=== PATIENT | male | born 1965 | race Caucasian/White ===

== ENCOUNTER → 2019-06-12 12:29 | Outpatient (CLI) | payer OTHER, SELFPAY ==
[2013-01-04 04:27] VITALS: BMI 39.6
--- NOTE | 2019-06-12 12:41 | RAD_ITS ---
STUDY: X-RAY CHEST REASON FOR EXAM: Male, 53 years old. ABNORMAL LUNG FUNCTION TEST TECHNIQUE: Frontal and lateral views of the chest. COMPARISON: None. FINDINGS: The lungs are clear and expanded. There is no demonstrated pleural abnormality. Normal size heart. Normal mediastinum and mathew. Normal visualized pulmonary arteries. Normal visualized aortic arch and descending thoracic aorta. There are diffuse degenerative changes of the visualized thoracic spine. Normal visualized ribs, clavicles, and shoulders. There is no demonstrated abnormality of the visualized soft tissue structures of the upper abdomen. RAD/Chest PA and Lateral IMPRESSION: No acute cardiopulmonary process. Electronically Signed: Aniya Kennedy MD at 21:52 EDT Tel , Service support ,
== END ==
PROVIDERS: PCP Internal Medicine; Referring Provider Internal Medicine; Visit Provider Internal Medicine
DX: R94.2 Abnormal results of pulmonary function studies (principal)
CPT/HCPCS: 71046

== ENCOUNTER 2020-06-13 15:52 | Outpatient (RCR) | payer OTHER, SELFPAY ==
--- NOTE | 2020-06-13 16:42 | HP.PTEVAL ---
Patient's Visit Information WHIT BRADFORD is a 54 year old M referred to Physical Therapy by Dr. Joyce Hennessy MD with a diagnosis of BPV. Date of Evaluation: 06/13/20 Physical Therapist: Brando An DPT, OCS, CSCS - Visit Plan Frequency: 1-2x /Week Duration: 2-4 Weeks Plan: 1-2x/week as needed for 2-4 weeks for positional treatments as needed and return to activity if needed. - Subjective Saturday early am got up to go to bathroom Satup and felt dizzy and stood up and worse, sitting on toilet started spinning. Spun when lying and it quit. Rolled over Saturday morning and spun less than a minute. Sat in bed for a while and wasn't self. Getting dizzy with sitting yesterday or standing. [place] sitting still. Laid down in bed and got got dizzy quickly . Some dizzyness at times with rolling. Today is mostly the same with movement and called off work. Went to doctor and spun when laid down. Employed as haul truck driver. Off today. Not very active last two days but normal prior to that. - Objective Walks into PT I, avoids moving head. Cervical aROM WFL and without pain. Balance is good. - L hallpike artie. + R hallpike artie for up torsional nystagmus of 13 second duration. Treated with R Nila and then - HD test. - Balance Scores Functional Gait Assessment Score: 30 % Disability: 0 - Goals Goal 1:: Patient feel 100% back to normal with activity including bed transfers Goal Time Frame: 2-4 Weeks Goal 2:: Pt return to work without issues. Goal Time Frame: 2-4 Weeks Goal 3:: DHI score less than 10 Goal Time Frame: 2-4 Weeks - Rehabilitation Potential Physical Therapy Diagnosis: R PC BPPV Rehabilitation Potential: Good - Anticipated Interventions Patient/Client Instruction: Educate patient on: Condition, Plan of Care For the Purpose of:: To increase tolerance to activity/condition/position Comment: positional treatments and return to activity as needed. For the Purpose of:: To increase tolerance to activity/condition/position Thank you for the opportunity to evaluate your patient. For Medicare and Medicare HMO plans, please review the plan of care and approve it. It will need to be FAXED BACK to us at [phone] for Medicare purposes. For Medicare only, by signing this I certify the plan of care. Please let me know if there are questions or concerns regarding this plan of care. Physician Signature: Date:
--- NOTE | 2020-06-17 07:01 | HP.PTDCSUM ---
It has been my pleasure to treat WHIT BRADFORD referred by Dr. Joyce Hennessy MD, with the diagnosis of BPV for a total of 1 visit(s). Discharge Date: 06/17/20 Please see the following information for a summary of their discharge status. % Improvement: 100 Goal 1:: Patient feel 100% back to normal with activity including bed transfers Goal Progress: Goal Met Goal 2:: Pt return to work without issues. Goal Progress: presumably met Goal 3:: DHI score less than 10 Goal Progress: Goal Met Plan: Pt was treated with positional treatment 3 days ago. He was to f/u today but has called to cancel stating dizzyness is all better. D/C If there are questions or concerns regarding this patient's physical therapy, please feel free to call me at [phone]. Thank you for the referral of this patient. Sincerely, Brando An, DPT, OCS, CSCS
== END 2020-06-13 19:00 | disposition home or self-care (01) ==
LOC: PT 15:52
PROVIDERS: PCP Internal Medicine; Referring Provider Internal Medicine; Visit Provider Internal Medicine
DX: H81.13 Benign paroxysmal vertigo, bilateral (principal)
CPT/HCPCS: 97161

== ENCOUNTER 2021-06-09 12:00 | Outpatient (CLI) | payer OTHER, SELFPAY | END 2021-06-09 23:59 | disposition home or self-care (01) | PROVIDERS: PCP Internal Medicine; Visit Provider Internal Medicine | DX: G47.30 Sleep apnea, unspecified (principal) | CPT/HCPCS: 95806 ==

== ENCOUNTER → 2022-04-12 | Outpatient (CLI) | payer OTHER, SELFPAY ==
--- NOTE | 2022-04-12 12:58 | BD_ITS ---
STUDY: DUAL ENERGY X-RAY ABSORPTIOMETRY / DXA REASON FOR EXAM: Male, 56 years old. 733.90OsteopeniaBONE DENSITY REASON FOR EXAM -- osteopenia TECHNIQUE: Bone Mineral Density (BMD) measurements of lumbar spine and bilateral hips were obtained. COMPARISON: None. FINDINGS: Lumbar Spine (L1-L4): g/cm2 (1.137) / T-score (0.5) / Z-score (1.0) Findings are suggestive of normal bone density with a low fracture risk. Left Femur Total: g/cm2 (1.070) / T-score (0.2) / Z-score (0.7) Left Femoral Neck: g/cm2 (0.893) / T-score (-0.3) / Z-score (0.6) Right Femur Total: g/cm2 (1.067) / T-score (0.2) / Z-score (0.7) Right Femoral Neck: g/cm2 (0.940) / T-score (0.1) / Z-score (1.0) BD/Dexa Bone Density Study IMPRESSION: The patient is considered normal as outlined below according to World Alan Organization (WHO) criteria with a low fracture risk. Reference Information: The T-score is the number of standard deviations above or below the standard which is normal for young adults at their peak bone mineral density. The World Health Organization (WHO) interprets the T-scores as follows: Above -1 Normal bone density Between -1 and -2.5 Osteopenia Equal to / or below -2.5 Osteoporosis As a practical clinical guideline, osteopenia may be graded as follows: Mild -1 through -1.5 Moderate -1.6 through -2.0 Severe -2.1 through -2.4 The Z-score is the number of standard deviations above or below age-matched controls. A Z-score of less than -1.5 would be considered abnormal. References: 1. NIH Osteoporosis and Related Bone Diseases www osteo.org 2. International Society for Clinical Densitometry www iscd.org 3. National Osteoporosis Foundation www nof.org Electronically Signed: Robbi Miller MD at 15:12 EST ,
== END | disposition home or self-care (01) ==
PROVIDERS: PCP Internal Medicine; Visit Provider Internal Medicine
DX: M85.80 Other specified disorders of bone density and structure, unspecified site (principal); M19.90 Unspecified osteoarthritis, unspecified site
CPT/HCPCS: 77080